=== PATIENT | male | born 1945 | race Caucasian/White ===

== ENCOUNTER → 2016-11-16 | Outpatient (CLI) | payer OTHER ==
[~2016-11-16] MED LIST: ALIN500T PO; AMLO5TAB96 PO; ASPI81 PO; BUSP15TA PO; CORE25TA PO; GABA300 PO; LISI40TA PO; LOFI134C PO; METR-1 PO; MOME17I; NIAC50TA PO; OXYC-360 PO; PROT40TA PO; TRAM50 PO; VITA400C28 PO
--- NOTE | 2016-11-22 09:05 | RSPPFT ---
DATE OF PROCEDURE: 11/16/16 COMMENTS: Spirometry shows FVC of 1.7 predicted 3.5, FEV1 of 1.2 predicted 2.7, FEV1/FVC ratio 73% predicted 79%. Lung volumes are decreased with TLC at 3.3 predicted 6.5. DLCO is 54% of predicted. IMPRESSION: On the basis of the above, patient has a restrictive lung defect with some response to acutely inhaled bronchodilator with FEV1 increasing to 1.5.
== END ==
LOC: HRSP 09:31
PROVIDERS: ATTEND Family Medicine
DX: G47.33 Obstructive sleep apnea (adult) (pediatric) (principal); R06.2 Wheezing
CPT/HCPCS: 94060; 94726; 94729